=== PATIENT | female | born 1955 | race Caucasian/White ===

== ENCOUNTER 2021-07-20 21:23 | Emergency (ER) | payer BC ==
[~2021-07-20] VITALS: Ht 170.2 cm; Wt 72.6 kg
[2021-07-20] MEDS ORDERED: PRAV20TA4 PO (21:44)
[2021-07-20] MEDS ORDERED: LISI10TA29 PO (21:44)
[2021-07-20] MEDS ORDERED: BUPR-53 PO (21:44)
[2021-07-20] MEDS ORDERED: LAMO100T17 PO (21:44)
[2021-07-20] MEDS ORDERED: METF-441 PO (21:44)
[2021-07-20] MEDS ORDERED: SEMA0.25 SQ (21:44)
[2021-07-20] MEDS ORDERED: ESCI20TA44 PO (21:44)
--- NOTE | 2021-07-20 22:11 | NUR ---
Dr El at bedside, MSE in progress.
--- NOTE | 2021-07-20 22:19 | NUR ---
pt taken to CT via gurwinder.
[2021-07-20] MEDS ORDERED: LIDOCAINE 1%-EPI 1:100,000 20 ML VIAL IJ ONE (22:30)
[2021-07-20] MEDS ORDERED: CEphaleXIN 500 MG CAPSULE PO ONE (22:30)
[2021-07-20] MEDS ORDERED: SODIUM BICARBONATE 4.2 % (NEUT) 5 ML VIAL TP ONE (22:30)
[2021-07-20] MEDS ORDERED: TDAP DIPH,PERTUSS,TET VAC/PF 0.5 ML DISP.SYRIN IM ONE ×2 (22:30→22:44)
[2021-07-20] MEDS ORDERED: SODIUM BICARBONATE 4.2 % (NEUT) 5 ML VIAL ONE (22:43)
[2021-07-20] MEDS ORDERED: LIDOCAINE 1%-EPI 1:100,000 20 ML VIAL ONE (22:43)
[2021-07-20] MEDS ORDERED: CEphaleXIN 500 MG CAPSULE ONE (22:44)
[2021-07-20] MEDS ORDERED: CEPH500T PO (23:30)
--- NOTE | 2021-07-20 23:41 | NUR ---
Patient discharged to home in stable condition. Written and verbal after care instructions given. Patient verbalizes understanding of instructions. Stressed follow up or return to ER for worsening s/s. pt ambulated with steady gait. denies pain. no SOB. no chest pain. AOx4
[2021-07-20 23:43] VITALS: BP 142/79
== END 2021-07-20 23:43 | disposition home or self-care (01) ==
LOC: ER 21:25
DX: S01.01XA Laceration without foreign body of scalp, initial encounter (principal); S09.90XA Unspecified injury of head, initial encounter; W18.39XA Other fall on same level, initial encounter; Y92.89 Other specified places as the place of occurrence of the external cause; G11.9 Hereditary ataxia, unspecified; E78.5 Hyperlipidemia, unspecified; E11.9 Type 2 diabetes mellitus without complications; Z79.84 Long term (current) use of oral hypoglycemic drugs; Z79.899 Other long term (current) drug therapy; F32.A Depression, unspecified
CPT/HCPCS: 12002; 70450; 90471; 90715; 99284; J3490 ×2; A4663